=== PATIENT | female | born 1985 | race Caucasian/White ===

== ENCOUNTER 2016-11-26 09:15 | Emergency (ER) | payer MEDICAID ==
[~2016-11-26] VITALS: Ht 167.6 cm; Wt 60.0 kg
[2016-11-26 09:16] VITALS: BP 136/96; PULSE 118; RESP 24; TEMP 98.2; O2SAT 99
[2016-11-26] MEDS ORDERED: KETOROLAC TROMETHAMINE 30 MG/ML (IVP) VIAL IV PUSH ONE (09:30)
[2016-11-26] MEDS ORDERED: LORazepam 2 MG/ML VIAL IV PUSH ONE (09:30)
--- NOTE | 2016-11-26 09:38 | PD ---
HPI Chief Complaint: Pain: Acute or Chronic Time Seen by Provider: 09:20 Travel History International Travel<30 days: No Contact w/Intl Traveler<30days: No Traveled to known affect area: No History of Present Illness HPI So 31-year-old presents to the emergency department complaining of severe back pain radiating on the right leg and severe pain in her right hamstring associated with numbness on the lateral side of the leg, paresthesias. She reports a history of back pain and sciatica at its been ongoing for 4 years or so. Over the past couple weeks since gotten progressively worse. She denies ever having pain this bad before. She reportedly was seen at [facility] for this but has had no relief of her symptoms. She was on opiates long-term and stopped them about 4 years ago or so. She also history of sciatica. No history of severe back injuries. She states she did fracture her coccyx before. Remote history of IV drug use, no use for more than 5 years or so. She has had some warmth in the leg on the right side, but no fevers or chills. No night sweats. History Past Medical History Narrative Medical Anxiety Sciatica Social History Alcohol Use: Yes (occassional) Tobacco Use: No Allergies-Medications (Allergen,Severity, Reaction): Coded Allergies: No Known Allergies (Unverified , 11/26/16) Review of Systems Except as stated in HPI: all other systems reviewed are Neg Physical Exam Narrative GENERAL: 31 year-old woman, writhing and crying. SKIN: Focused skin assessment warm/dry. NECK: Trachea midline. No JVD. CARDIOVASCULAR: Regular rate and rhythm. No murmur appreciated. RESPIRATORY: No accessory muscle use. Clear to auscultation. Breath sounds equal bilaterally. GASTROINTESTINAL: Abdomen soft, non-tender, nondistended. Hepatic and splenic margins not palpable. MUSCULOSKELETAL: No obvious deformities. No clubbing. No cyanosis. No edema. NEUROLOGICAL: Awake and alert. Strength full and equal bilateral lower extremities proximal distal muscle groups, great toe flexion and extension. Subjective decreased sensation on the lateral aspect of the right leg, thigh and calf. Reflexes 2+ in the patella bilaterally, 1+ bilateral Achilles. Downgoing Babinski's bilaterally. PSYCHIATRIC: Appropriate mood and affect; insight and judgment normal. Data Data Last Documented VS Vital Signs Date Time Temp Pulse Resp B/P Pulse Ox O2 Delivery O2 Flow Rate FiO2 11/26/16 09:16 98.2 118 24 136/96 99 Orders Iv Access Insert/Monitor (11/26/16 09:29) Mri L Spine W/O Contrast (11/26/16 ) Ketorolac Inj (Toradol Inj) (11/26/16 09:30) Lorazepam Inj (Ativan Inj) (11/26/16 09:30) MDM Medical Decision Making Medical Screen Exam Complete: Yes Emergency Medical Condition: Yes Interpretation(s) MRI lumbar spine: Moderate broad based protrusion more eccentric to the right with extruded component L5-S1 abutting both S1 nerve roots in the lateral recesses greater on the right. Otherwise unremarkable. Differential Diagnosis Sciatica, radiculopathy, mass or epidural abscess, other Narrative Course Medical decision making 31-year-old woman with severe radicular pain with sensory changes in the right lower extremity. No history of trauma. Is writhing and crying in pain, rolling around in the bed. She does have a history of anxiety as well. We'll treat Toradol Ativan, check screening MRI ensure no evidence of spinal cord compression. Remote history of IV drug use but denies anything recently. Likely steroids and outpatient follow-up. Diagnosis Primary Impression: Sciatica Additional Instructions: Take steroids as prescribed. Use Lortab as needed for pain. Follow-up with her primary physician for further evaluation. Return to the emergency department for any worsening back pain, numbness or tingling, weakness, or any other new or worsening symptoms. Med/Other Pt SpecificInfo: Prescription(s) given Scripts Hydrocodone-Acetaminophen (Lortab)5-325 Mg Tab1-2 Tab PO Q6H PRN (PAIN) #12 TAB Prov:Marco Palumbo MD 11/26/16 Prednisone (Deltasone)20 Mg Tab20 Mg PO BID 10 Days Prov:Marco Palumbo MD 11/26/16 Disposition: 01 DISCHARGE HOME Condition: Stable Marco Palumbo MD November 26, 2016 09:38
--- NOTE | 2016-11-26 10:58 | RADRPT ---
EXAM DATE/TIME: 11/26/2016 10:23 [facility] COMPARISON: No previous studies available for comparison. INDICATIONS : Pain. Low back and right leg pain. MEDICAL HISTORY : None. SURGICAL HISTORY : None. ENCOUNTER: Initial ACUITY: 1 week PAIN SCORE: 7/10 LOCATION: [facility] TECHNIQUE: Multiplanar multisequence MRI of the lumbar spine was performed without contrast. FINDINGS: The most caudal appearing lumbar vertebra is numbered as L5. VERTEBRAE: Homogeneous signal. Normal alignment. CONUS: Normal level and configuration. T12-L1: The thecal sac has a normal diameter. No evidence of disc bulge or protrusion. The neural foramina are patent bilaterally. L1-L2: The thecal sac has a normal diameter. No evidence of disc bulge or protrusion. The neural foramina are patent bilaterally. L2-L3: The thecal sac has a normal diameter. No evidence of disc bulge or protrusion. The neural foramina are patent bilaterally. L3-L4: The thecal sac has a normal diameter. No evidence of disc bulge or protrusion. The neural foramina are patent bilaterally. L4-L5: The thecal sac has a normal diameter. No evidence of disc bulge or protrusion. The neural foramina are patent bilaterally. L5-S1: Moderate broad-based protrusion more eccentric to the right abuts the ventral thecal sac and abuts kindra th S1 nerve roots in the lateral recesses greater on the right. There is extruded component extending inferiorly underneath the posterior longitudinal ligament. The neural foramina are patent bilaterall y. No canal stenosis. CONCLUSION: 1. Moderate broad-based protrusion more eccentric to the right with extruded component at L5-S1 abutt ing both S1 nerve roots in the lateral recesses greater on the right. 2. The remainder of the lumbar spine is otherwise unremarkable. Chuck Zuluaga MD on November 26, 2016 at 10:54 Board Certified Radiologist. This report was verified electronically.
[2016-11-26] MEDS ORDERED: PRED-503 PO (11:03)
[2016-11-26] MEDS ORDERED: HYDR-3533 PO (11:03)
== END 2016-11-26 11:54 | disposition home or self-care (01) ==
LOC: NEPD 09:15
DX: M54.30 Sciatica, unspecified side (principal)
CPT/HCPCS: 72148; 96374; 99283; J1885; J2060